=== PATIENT | male | born 1945 | race American Indian/Alaskan Native ===

== ENCOUNTER 2018-03-28 00:45 | Emergency (ER) | payer MEDICARE ==
[2018-03-28 00:58] VITALS: BP 150/79; PULSE 79; RESP 16; TEMP 98.4; O2SAT 98
--- NOTE | 2018-03-28 01:21 | C.PDOC ---
History Of Present Illness 72 year old male presents to the ER with a complaint of pain to the right leg after twisting his knee at approximately 18:00 today. Patient reports trying to board path train when he missed step and twisted his leg. Denies weakness or numbness. Time Seen by Provider: 03/28/18 01:00 Chief Complaint (Nursing): Lower Extremity Problem/Injury History Per: Patient History/Exam Limitations: no limitations Onset/Duration Of Symptoms: Hrs Current Symptoms Are (Timing): Still Present Recent travel outside of the [place]: No - Knee Description Of Injury: Twisted Past Medical History Reviewed: Historical Data, Nursing Documentation, Vital Signs Vital Signs: Last Vital Signs Temp 98.4 F 03/28/18 00:56 Pulse 79 03/28/18 00:56 Resp 16 03/28/18 00:56 BP 150/79 03/28/18 00:56 Pulse Ox 98 03/28/18 01:36 - Medical History PMH: Hyperlipidemia Family History: States: Unknown Family Hx - Social History Hx Alcohol Use: Yes Hx Substance Use: No Review Of Systems Musculoskeletal: Positive for: Leg Pain. Negative for: Back Pain Neurological: Negative for: Weakness, Numbness Physical Exam - Physical Exam Appears: Non-toxic Skin: Normal Color, Warm, Dry Head: Atraumatic, Normacephalic Eye(s): bilateral: Normal Inspection Neck: Normal ROM Back: No Vertebral Tenderness, No Paraspinal Tenderness Extremity: Normal ROM (x4), Tenderness (Right lateral thigh and knee), No Deformity, No Swelling, No Other (Ecchymosis, hip tenderness) Pulses: Left Dorsalis Pedis: Normal, Right Dorsalis Pedis: Normal Neurological/Psych: Oriented x3, Normal Speech, Normal Motor, Normal Sensation Gait: Steady (with cane) ED Course And Treatment O2 Sat by Pulse Oximetry: 98 (Room air) Pulse Ox Interpretation: Normal Medical Decision Making Medical Decision Making: Patient with twisting injury of right lower extremity. There is no hip tenderness, leg shortening or abnormal rotation of hip and leg. Based on history and exam, xray not indicated at this time. I offered pain medication and ice pack, however the patient is refusing any medication. He also agrees there is no fracture does not feel like broken bone and does not want xray. He additionally states he will get treatment at the [facility] and does not want any further evaluation in this ED. Patient is stable for discharge. Disposition Counseled Patient/Family Regarding: Diagnosis, Need For Followup - Disposition Referrals: [facility] [Outside] Disposition: HOME/ ROUTINE Disposition Time: 01:35 Condition: STABLE Additional Instructions: Please apply ice to area 15 minutes three times a day. Take Motrin as needed for pain every 6 hours, with food to not upset stomach. Follow up with your doctor Instructions: Muscle Strain Forms: Other Machine (Irish) - POA Present On Arrival: None - Clinical Impression Clinical Impression: Leg strain, Right knee sprain - PA / SURFACE GRINDER TENDER / Resident Statement MD/DO has reviewed & agrees with the documentation as recorded. - Scribe Statement The provider has reviewed the documentation as recorded by the Scribpraveen Castañeda All medical record entries made by the Kandiceibpraveen were at my direction and personally dictated by me. I have reviewed the chart and agree that the record accurately reflects my personal performance of the history, physical exam, medical decision making, and the department course for this patient. I have also personally directed, reviewed, and agree with the discharge instructions and disposition.
== END 2018-03-28 02:00 | disposition home or self-care (01) ==
LOC: C.ER 00:45
DX: S76.911A Strain of unspecified muscles, fascia and tendons at thigh level, right thigh, initial encounter (principal); S83.91XA Sprain of unspecified site of right knee, initial encounter; X50.9XXA Other and unspecified overexertion or strenuous movements or postures, initial encounter; Y92.522 Railway station as the place of occurrence of the external cause